=== PATIENT | male | born 1970 | race Caucasian/White ===

== ENCOUNTER 2021-12-05 16:33 | Outpatient (REF) | payer BC, SELFPAY ==
--- NOTE | ~2021-12-05 | XR_ITS ---
EXAMINATION: XR SHOULDER, LEFT CLINICAL INFORMATION: Chest pain. COMPARISON: None TECHNIQUE: AP external rotation, Grashey, scapular Y, and axillary views of the left shoulder. FINDINGS: The glenohumeral and AC joint space is normal. There is mild inferior AC joint spurring. No visible acute fracture, dislocation or subluxation seen. The soft tissues are normal. XR/XR shoulder LT min 2V IMPRESSION: Unremarkable left shoulder exam.
[2021-12-05 16:46] LABS: MANUAL DIFF FLAG NO
[2021-12-05 17:22] LABS: Basophils Percent Auto 0.5 % (0-2); Eosinophils Absolute Auto 0.2 X10*3/uL (0.0-0.4); Hematocrit 43.8 % (42.0-52.0); Hemoglobin 15.4 g/dl (14.0-18.0); Imm Gran Abs Auto 0.03 X10*3/uL (0.00-0.03); Imm Gran Pct Auto 0.4 % (0.0-0.4); Mean Corpuscular HGB Conc 35.2 g/dl (31.0-36.0); Mean Corpuscular Hemoglobin 30.7 pg (27.0-33.0); Mean Corpuscular Volume 87.4 fL (80.0-98.0); Mean Platelet Volume 9.5 fL (9.4-12.4); Monocytes Absolute Auto 0.6 X10*3/uL (0.1-1.2); Monocytes Percent Auto 8.1 % (2-11); Platelet Count 265 X10*3/uL (160-400); Red Blood Count 5.01 X10*6/uL (4.60-5.80); White Blood Count 7.8 X10*3/uL (4.8-10.8)
[2021-12-05 17:25] LABS: Appearance Urine Clear; Color Urine Yellow; Glucose Urine UA Negative (Negative); Leukocyte Esterase Urine Negative (Negative); Nitrite Urine Negative (Negative); PH 5.5 (5.0-9.0); Specific Gravity - Urine 1.015 (1.005-1.025); UMIC TRIGGER UA YES; Urine Blood Trace (Negative); Urine Ketones Negative (Negative); Urine Protein Negative (Neg-Trace)
[2021-12-05 17:30] LABS: Bacteria Urine None Seen (None Seen); Hyaline Casts Urine 0-2 /LPF (0-2); RBC Urine 0-2 /HPF (0-2); Squamous Epithelial Cell Urine 0-2 /HPF (0-2); WBC Urine 0-5 /HPF (0-5)
[2021-12-05 17:37] LABS: Alanine Aminotransferase 15 U/L (0-40); Albumin Level 4.5 g/dL (3.5-5.0); Alkaline Phosphatase 55 U/L (39-117); Anion Gap 13 (12-20); Aspartate Amino Transferase 19 U/L (5-37); Bilirubin Total 0.5 mg/dL (0.0-1.0); Blood Urea Nitrogen 11 mg/dL (9-16); Calcium 9.4 mg/dL (8.4-10.2); Carbon Dioxide 27 mmol/L (22-29); Chloride 106 mmol/L (96-108); Cholesterol 188 mg/dL; Estimated Glomerular Filt Rate > 60; Glucose Random 67 mg/dL (60-115); HDL Cholesterol 61 mg/dL; LDL Cholesterol Calculated 113 mg/dl; Potassium 5.4 mmol/L (3.3-5.1); Sodium 141 mmol/L (135-145); Total Protein 6.8 g/dL (6.5-8.0); Triglycerides 70 mg/dL
[2021-12-05 18:02] LABS: Prostate Specific Antigen 1.71 ng/mL (<0.05-4.0)
== END 2021-12-05 16:34 | disposition home or self-care (01) ==
LOC: HO.LAB 16:33
PROVIDERS: Visit Provider Internal Medicine
DX: Z00.00 Encounter for general adult medical examination without abnormal findings (principal); Z12.5 Encounter for screening for malignant neoplasm of prostate; M25.512 Pain in left shoulder
CPT/HCPCS: 36415; 73030; 80053; 80061; 81001; 84153; 85025

== ENCOUNTER 2022-01-25 11:47 | Day surgery (SDC) | payer BC, SELFPAY ==
--- NOTE | 2022-01-24 09:49 | HO.ANESPROP2 ---
Documented by User: Ludivina Howard NP 01/24/22 09:51 HPI - Anesthesia Eval Consult details Narrative: 51yo M for Right Open Hernia Repair Inguinal with mesh PMFSH Active Problems Active Problems: All Active Problems (Updated 01/17/22 @ 15:40 by Maribel Mckoy RN) Recurrent right inguinal hernia (Acute) Hyperkalemia (Acute) Past Medical History Medical History Hx of renal calculi Family History Family History Mother No problems noted. Father No problems noted. Surgical History Surgical History History of appendectomy History of hernia surgery History of left knee surgery Social History Social History Patient Tobacco Use Status: Current someday Tobacco user Tobacco use type: Cigar Use of substances other than those prescribed or required for medical reasons: No Are you DNR?: No Advance Directives: No Advance Directives Information Provided: Yes Meds Allergies Allergy/AdvReac Type Severity Reaction Status Date / Time No Known Allergies Allergy Verified 01/25/22 12:04 [No Known Allergies*] Home Medications Medication Instructions Recorded Confirmed Last Taken Type ibuprofen 200 mg capsule 200 mg PO Q6H PRN Pain 01/02/22 01/17/22 Unknown History Exam Exam Date and Time: January 24, 2022 0949 Pertinent Lab Results Pertinent Lab Results: Laboratory Tests 12/05/21 12/05/21 16:44 16:44 WBC 7.8 Hgb 15.4 Hct 43.8 Plt Count 265 Carbon Dioxide 27 BUN 11 Creatinine 0.88 Assessment and Plan Assessment Anesthesia Assessment: Chart Reviewed Documented by User: Karlie Orozco MD 01/25/22 12:46 PMFSH Past Medical History Medical History Hx of renal calculi Functional capacity: independent ambulation Family History Family History Mother No problems noted. Father No problems noted. Family history of problems with anesthesia: No Surgical History Surgical History History of appendectomy History of hernia surgery History of left knee surgery History of Problems with Anesthesia: Yes (Ponv) Social History Social History Patient Tobacco Use Status: Current someday Tobacco user Tobacco use type: Cigar Use of substances other than those prescribed or required for medical reasons: No Are you DNR?: No Advance Directives: No Advance Directives Information Provided: Yes Meds Allergies Allergy/AdvReac Type Severity Reaction Status Date / Time No Known Allergies Allergy Verified 01/25/22 12:04 [No Known Allergies*] Home Medications Medication Instructions Recorded Confirmed Last Taken Type ibuprofen 200 mg capsule 200 mg PO Q6H PRN Pain 01/02/22 01/17/22 Unknown History Exam Airway Mallampati Class: I TM Dist: >3cm Neck ROM: Full Heart: rrr Lungs: wheeze rll oterwise CTA Assessment and Plan Assessment Anesthesia Assessment: Anesthesia Plan Discussed Final Anesthetic Review Family History of Problems with Anesthesia: No History of Problems with Anesthesia: Yes (Ponv) NPO: Yes ASA Class: I Final Preanesthetic Review: No Changes in Pt Med Stat, Meds/Allgs Chart Reviewed and Consent Obtained/Reviewed Patient Risk: Low Procedure Risk: Intermediate Anesthetic Plan Anesthetic Plan: GA Disposition: Standard PACU
[2022-01-25] VITALS (8 sets, daily range): BP systolic 103–137; BP diastolic 72–86; PULSE 64–83; RESP 16–18; TEMP 36.8–37.1; O2SAT 95–98; BMI 22.6
[2022-01-25] MEDS: Lactated Ringers 1,000 ML 100 ML IVCONT (12:38)
[2022-01-25 12:54] LABS: Anion Gap 14 (12-20); Carbon Dioxide 22 mmol/L (22-29); Chloride 108 mmol/L (96-108); Potassium 4.2 mmol/L (3.3-5.1); Sodium 140 mmol/L (135-145)
--- NOTE | 2022-01-25 13:07 | PC.NURSE ---
called for a resp treatment
[2022-01-25] MEDS: Albuterol Sulfate (0.083%) 2.5 MG/3 ML VIAL.NEB INHALE (13:09)
--- NOTE | 2022-01-25 13:59 | ECG_ITS ---
Test Reason : ? BBB Blood Pressure : / mmHG Vent. Rate : 075 BPM Atrial Rate : 075 BPM P-R Int : 158 ms QRS Dur : 124 ms QT Int : 442 ms P-R-T Axes : 072 032 075 degrees QTc Int : 493 ms Normal sinus rhythm Non-specific intra-ventricular conduction delay Minimal voltage criteria for LVH, may be normal variant ( Xu product ) Borderline ECG No previous ECGs available Referred By: Emelyn Escalante Electronically Signed By:Jose Luis Casas
--- NOTE | 2022-01-25 14:31 | MHC.SHP ---
Pre-Procedural Eval Section A Date of Service: 01/25/22 The patient is an INPATIENT: No The History & Physical has been completed within 30 days and I have reviewed it.: Yes Section B Chief Complaint: Unilateral inguinal hernia, without obstruction Allergies: Allergies Allergy/AdvReac Type Severity Reaction Status Date / Time No Known Allergies Allergy Verified 01/25/22 12:04 [No Known Allergies*] Plan I have reviewed the history and physical and performed a pertinent physical examination on my patient. No changes have occurred unless specified.
--- NOTE | 2022-01-25 14:31 | W.PM.OPN ---
Operative Note Operative Note Date of Service: 01/25/22 Narrative: Preop diagnosis: [RIGHT inguinal hernia] Postop diagnosis: [same, Direct recurrence] Procedure: [Open right inguinal hernia repair with mesh] Surgeon: Derian Umanzor MD Assist: [] Anesthesia: [general via LMA, Ropivicaine, 0.5% plain] Estimated blood loss: [3cc] Specimen: [none] Intraoperative findings: [A recurrent direct inguinal hernia with protrusion of the viable properitoneal fat under the laparoscopic placed mesh was encountered. The hernia was dissected circumferentially and reduced and the floor was imbricated to close the defect and a Luis tension-free hernia repair performed] Indications: [The patient is a 51-year-old gentleman with a recurrent & symptomatic right inguinal hernia. He denies any significant chronic medical history who reports that in 2018, he underwent laparoscopic repair of an umbilical and bilateral inguinal hernias with mesh.? However, he noted a few months ago, protrusion that feels like when he had a right inguinal hernia previously. The option of continued observation, repeat laparoscopic repair or 2nd opinion were reviewed. The patient's questions seemed to be satisfactorily answered. Activity restrictions, specifically the patient cannot lift more than 20 lb for the next 4 weeks, the need for light duty, the fact that the patient is not disabled and can perform light duty was all discussed and apparently understood. The options including continued observation versus operative repair and 2nd opinion were also discussed. The inherent risks to open inguinal hernia repair were discussed and options of laparoscopic or robotic/MIS repair were also discussed. These risks of hernia surgery include, but are not limited to: Bleeding, infection, hernia recurrence especially if weight gain or postoperative instructions are not followed, nerve entrapment, urinary retention, testicular injury due to compromsied blood supply from the prior operation, chronic pain, mesh complications that could require reoperation. The patient seemed to understand all of these options, had their questions answered and wanted to proceed. Activity restrictions were also discussed at length in the patient's questions seemed to be answered. ] Procedure: [The patient was identified by myself in preoperative holding and the RIGHT GROIN operative site marked by myself. He was brought into the operating suite and again identified, then placed supine on the table. He voided his bladder validation consultant, sequential compression stockings were in place, abdominal and groin hair was clipped before surgery and he received Ancef, 2 g IV. The patient voided there bladder validation consultant, received antibiotics per protocol and sequential compression stockings were in place. The operative field hair had been clipped in preop holding. The patient was again identified in the operating suite and placed supine on the table. See anesthesia notes for full details regarding anesthesia care and management. An appropriate time-out was performed confirming the operative site and procedure. The patient was then widely prepped and draped in the usual manner using chlorhexidine. An ileoinguinal nerve block was performed using ropivicaine and a standard RIGHT inguinal herniorrhaphy incision made sharply through the skin. Dissection was carried through all layers using electric cautery for dissection and hemostasis. Additional local was infiltrated is the external oblique aponeurosis, in the external oblique aponeurosis opened sharply in the direction of its fibers to the external ring. The ilioinguinal nerve was identified and preserved/sacrificed through the dissection. The cord was mobilized at the level of the pubic tubercle and surrounded with hernia tape. The floor was inspected and a direct inguinal hernia with the palpable laparoscopic late mesh and direct recurrence under the inferior margin of the mesh was found. Careful dissection of the spermatic cord to preserve the vessels and vas was performed to assess for indirect hernia sac. The hernia sac was highly dissected, opened, its contents reduced and suture ligation performed. Next, the floor was imbricated using a 2-0 Polysorb and a standard Luis tension-free herniorrhaphy performed using polypropylene patch that was sutured to the pubic tubercle and inguinal ligament using a 2-0 Polysorb. A new internal ring was made using 2-0 polypropylene suture. The new internal ring was snug enough that it could just accommodate a tip of a hemostat. Next, the operative field was inspected for hemostasis which was good, the external oblique aponeurosis was closed with a running 0 Polysorb suture, subcutaneous tissues closed with 3-0 Polysorb and skin closed with running 4-0 Monocryl subcuticular suture. The abdomen was washed and dried, Mastisol and Steri-Strips applied followed by a sterile dressing. Patient tolerated the procedure well was sent to the recovery area in stable condition. All sponge and instrument counts were correct x2.
[2022-01-25] MEDS: oxyCODONE HCl Immed Release 5 MG TABLET PO (16:40)
== END 2022-01-25 17:01 | disposition home or self-care (01) ==
LOC: HO.SSS 11:48
PROVIDERS: Nurse Practitioner; PCP Internal Medicine; Visit Provider Surgery
PROC: (CPT 49520; principal; 2022-01-25 13:20)
DX: K40.91 Unilateral inguinal hernia, without obstruction or gangrene, recurrent (principal); E87.5 Hyperkalemia; I45.9 Conduction disorder, unspecified
CPT/HCPCS: 49520; 36415; 80051; 93005; 94640; C1781; J0690; J2250; J2795; J3010

== ENCOUNTER 2024-01-06 14:31 | Outpatient (REF) | payer SELFPAY ==
--- NOTE | ~2024-01-06 | XR_ITS ---
EXAMINATION: XR CHEST CLINICAL INFORMATION: Cough, congestion COMPARISON: Chest radiograph 07/08/2008. TECHNIQUE: 2 views of the chest were obtained. FINDINGS: The lungs are well-expanded. No focal consolidation. No pleural effusions or pneumothorax. The cardiomediastinal silhouette is within normal limits. No acute osseous abnormality. XR/XR chest 2V IMPRESSION: No acute pulmonary disease. Electronically signed by: Rafiq You MD 01/06/2024 05:12 PM [facility]
== END 2024-01-06 14:32 | disposition home or self-care (01) ==
LOC: HO.XRAY 14:31
PROVIDERS: PCP Internal Medicine; Visit Provider Internal Medicine
DX: R05.9 Cough, unspecified (principal)
CPT/HCPCS: 71046